=== PATIENT | male | born 1960 | race Caucasian/White ===

== ENCOUNTER → 2022-03-06 11:44 | Outpatient (CLI) | payer MEDICAID, SELFPAY ==
[2022-03-06 11:50] LABS: Coronavirus 19, PCR Not Detected (NotDetected); Influenza A, PCR Not Detected (NotDetected); Influenza B, PCR Not Detected (NotDetected)
[2022-03-06 13:21] LABS: Basophils % 0.5 % (0.1-2.0); Eosinophils # 0.1 K/mm3 (0.0-0.4); Eosinophils % 2.3 % (0.1-12.0); Hematocrit 39.9 % (42.0-52.0); Hemoglobin 12.2 g/dL (14.1-18.0); Lymphocytes # 1.4 K/mm3 (0.7-4.5); Lymphocytes % 28.3 % (10-50); Mean Corpuscular HGB Conc 30.7 g/dL (31.8-35.4); Mean Corpuscular Hemoglobin 29.8 pg (27.0-31.2); Mean Corpuscular Volume 97.2 fl (80-94); Monocytes # 0.4 K/mm3 (0.1-1.0); Monocytes % 7.5 % (1.7-9.3); Neutrophils % 61.3 % (37.0-80.0); Platelet Count 294 K/mm3 (142-424)
[2022-03-06 14:08] LABS: Chloride 103 mmol/L (98-107)
[2022-03-06 14:09] LABS: Potassium 4.4 mmoL/L (3.5-5.1); Sodium 139 mmol/L (136-145)
[2022-03-06 14:11] LABS: Blood Urea Nitrogen 12 mg/dl (9-20); Estimated Glomerular Filt Rate 62 ml/min (>60); GFR (African American) 75 ML/MIN (>60)
[2022-03-06 14:12] LABS: Anion Gap 11.4 mEq/L (5-15); Calcium 9.4 mg/dl (8.4-10.2); Carbon Dioxide 29 mmol/L (22.0-30.0); Glucose 151 mg/dl (74-100)
== END ==
PROVIDERS: PCP Pediatrics; Visit Provider Internal Medicine
DX: R06.02 Shortness of breath (principal); I25.10 Atherosclerotic heart disease of native coronary artery without angina pectoris; E11.9 Type 2 diabetes mellitus without complications; E66.01 Morbid (severe) obesity due to excess calories; E78.2 Mixed hyperlipidemia; I11.9 Hypertensive heart disease without heart failure; I20.0 Unstable angina; I63.9 Cerebral infarction, unspecified
CPT/HCPCS: 36415; 80048; 85025; C9803; U0003; U0005

== ENCOUNTER 2022-03-07 12:53 | Inpatient (IN) | payer MEDICAID, SELFPAY ==
[2022-03-07] VITALS (20 sets, daily range): BP systolic 98–165; BP diastolic 56–93; PULSE 50–71; RESP 12–22; TEMP 36.1–37.1; O2SAT 95–99; BMI 52.4
--- NOTE | 2022-03-07 07:13 | IR_ITS ---
APPROVED REPORT Patient Location: Outpatient PROCEDURES Left heart catheterization Left ventriculogram Selective coronary angiogram INDICATION Accelerated angina pectoris, Known diffuse coronary disease Informed consent was obtained prior to the procedure. COMPLICATIONS None Estimated Blood Loss: Less than 10 mls TECHNIQUE One percent lidocaine used to anesthetize the right anterior aspect of the wrist. The right radial artery was accessed via the Seldinger technique. A 6 [place] sheath was placed in the right radial artery. 2.5 mg of verapamil, 800 mcg of nitroglycerin, 1mg Lidocaine and 5000 U Heparin were given through the arterial sheath. The papa catheter was also used to perform left heart catheterization, left ventriculogram and selective coronary angiogram. At the end of the procedure the sheath was removed good hemostasis was achieved using Traclet band, patient was transferred to the postop holding area in stable condition. ANGIOGRAPHIC RESULTS The left main artery Has a mid vessel eccentric 80 to 90% stenosis with a distal 90% stenosis The left anterior descending artery Has an ostial 70 to 80% calcified stenosis with diffuse proximal and mid vessel 30% stenosis. There is a mid vessel concentric 70 to 80% stenosis. Distally the LAD is small caliber as it approaches the apex and has a long tubular 90% stenosis The circumflex artery Is nondominant yet still large with a stent in the proximal mid and distal segment. The ostium of the circumflex artery has a 90% stenosis with mid vessel and proximal 50% stenosis. Distally there are additional 30% stenosis The right coronary artery Is a dominant vessel and has stents in the proximal segment which are widely patent with minimal in-stent restenosis. Distally there are also stents which are widely patent. The posterior descending artery has stents in the proximal segment which are widely patent. The midportion has a focal 90% concentric stenosis The LAYTON ventriculogram reveals Preserved at 55% The left ventricular end-diastolic pressure 20 mmHg IMPRESSION Severe coronary disease as described above Preserved ejection fraction Elevated LVEDP PLAN 1. Discontinue Plavix and start heparin drip 2. Patient will be admitted for unstable angina with plans to transfer to [facility] for coronary bypass surgery this admission 3. LDL less than 55 to be achieved with high intensity statin 4. Risk factor modification Electronically signed by : Boogie Flor MD 03/07/2022 15:17:27
--- NOTE | 2022-03-07 12:00 | SUR.PHASEII ---
[facility] called to notify that pt is on list for bed but it wont be today, notified dr russell stated he will contact service physician and get patient admitted.
--- NOTE | 2022-03-07 12:28 | HMH.PHAINT1 ---
Pharmacy Intervention Comments: MEDICATION RECONCILIATION COMPLETED ON PATIENT USING EXTERNAL FILL HISTORY FROM PHARMACY. -LEA HUTCHINS, ANAD
[2022-03-07 12:50] LABS: INR 1.01 (0.9-1.1); Prothrombin Time 11.4 seconds (10.1-12.5)
[2022-03-07 12:53] LABS: PTT Heparin (inpatient only) 73.1 Seconds (23.6-34.0)
--- NOTE | 2022-03-07 12:55 | PC.NURSE ---
arrived to unit, room 262
--- NOTE | 2022-03-07 13:03 | PC.NURSE ---
received call from lab reporting PTT 73.1. Name and verified. Pharmacy ([facility]) notified.
--- NOTE | 2022-03-07 13:06 | EXP.PHA.VTE ---
[facility] Pharmacy VTE Monitoring Patient Demographics Admission date: 03/07/22 Report Date: 03/07/22 Time: 13:06 Patient Allergies isosorbide Allergy (Mild, Verified 03/06/22 10:49) Penicillins [PENICILLINS] Allergy (Unknown, Verified 03/06/22 10:49) Height: 1.57 m Weight: 130.181 kg VTE Risk Labs: VTE Related Lab Results PT 11.4 seconds (10.1-12.5) 03/07/22 12:15 INR 1.01 (0.9-1.1) 03/07/22 12:15 APTT 73.1 Seconds (23.6-34.0) H* 03/07/22 12:15 Was VTE Risk Assessment Performed: No Clinical Trial Participant: No Prophylaxis VTE Prophylaxis Ordered?: Yes Types of VTE Prophylaxis: TEDS Knee High and Pharmacological Location of Applied Device: Bilateral Lower Extremeties Pharmacologic Type: Heparin
[2022-03-07 16:16] LABS: PTT Heparin (inpatient only) 59.3 Seconds (23.6-34.0)
--- NOTE | 2022-03-07 16:48 | PC.NURSE ---
Notified nightwatch that PTT is 59.3
--- NOTE | 2022-03-07 16:58 | PC.NURSE ---
Per nightwatch (N. Irme): continue Heparin gtt @ 1200 units/hr. Next PTT entered per him @ 2200pm tonight
--- NOTE | 2022-03-07 17:02 | PC.NURSE ---
Blood sugar checked this afternoon and result is 187. Pt informed me that his A1C is down 2 points to 7. He explains that he decreased it by adding insulin to his regimen. I informed him that insulin is not a medication on his home med list. He explains that he buys OTC insulin pens for animals and administers 25units subq every morning. He reports that his oral diabetic medication is no longer effective and that insulin does the trick . I explained that his PCP needs to know this, as well as the provider @ [facility]. He states that he will not accept insulin that is prescribed to him and that notifying any medical doctor will not change his mind. Will make the team aware.
--- NOTE | 2022-03-07 18:08 | PC.NURSE ---
Addendum entered by Kate Julio RN 03/07/22 18:39: pt voided 750mL in urinal Original Note: shift summary: New admit from cathlab today. Pt underwent LHC via right wrist. No stents placed. Pt awaiting bed at for CABG. Dr. Fuentes is the CV surgeon @ . [facility]. Has been pleasant. Denies chest pain, n/v, and dyspnea. On RA with O2 sats high 90s. NSR on tele. Has been normotensive. Nitroglycerin gtt @ 5mcg/min per Dr. Flor. Heparin gtt is @ 1200 units/hr with next PTT due tonight at 2200. No s/s of bleeding noted. Dressing to right wrist CDI. Tolerating a cardiac diet. Has not voided since being admitted @ 1pm. Pt reports that he has not needed to. Pt is permitted to have visitors. He has not had visitors this shift.
--- NOTE | 2022-03-07 18:33 | EXP.HP ---
History of Present Illness *Admission Date: 03/07/22 *Reason for visit:: coronary artery disease *History of present illness: 61 year old male admitted to our service following cardiac cath. We are waiting on transfer to [facility] for bypass. ANGIOGRAPHIC RESULTS The left main artery Has a mid vessel eccentric 80 to 90% stenosis with a distal 90% stenosis The left anterior descending artery Has an ostial 70 to 80% calcified stenosis with diffuse proximal and mid vessel 30% stenosis.? There is a mid vessel concentric 70 to 80% stenosis.? Distally the LAD is small caliber as it approaches the apex and has a long tubular 90% stenosis The circumflex artery Is nondominant yet still large with a stent in the proximal mid and distal segment.? The ostium of the circumflex artery has a 90% stenosis with mid vessel and proximal 50% stenosis.? Distally there are additional 30% stenosis The right coronary artery Is a dominant vessel and has stents in the proximal segment which are widely patent with minimal in-stent restenosis.? Distally there are also stents which are widely patent.? The posterior descending artery has stents in the proximal segment which are widely patent.? The midportion has a focal 90% concentric stenosis The [place] ventriculogram reveals Preserved at 55% The left ventricular end-diastolic pressure 20 mmHg IMPRESSION Severe coronary disease as described above Preserved ejection fraction Elevated LVEDP PFSH PFS Medical History (Updated 03/07/22 @ 18:39 by Tamir Herron MD) Angina, class IV CAD (coronary artery disease) HHD (hypertensive heart disease) Hyperlipidemia Obesity SOB (shortness of breath) Surgical History Stented coronary artery Family History (Updated 03/07/22 @ 13:39 by Kate Julio RN) Other No significant family history Social History Smoking Status: Never smoker second hand exposure: No alcohol intake: never substance use type: denies use current occupational status: employed Travel in the last 8 weeks: None household members: spouse housing: house current occupational exposures/hazards: No caffeine: Yes Review of Systems Constitutional Constitutional: Reports system reviewed and no additional complaints, except as documented Eyes Eyes: Reports system reviewed and no additional complaints, except as documented ENT Ears, Nose, Mouth, and Throat: Reports system reviewed and no additional complaints, except as documented *Cardiovascular Cardiovascular: Reports chest pain *Respiratory Respiratory: Reports system reviewed and no additional complaints, except as documented *Gastrointestinal Gastrointestinal: Reports system reviewed and no additional complaints, except as documented *Genitourinary Genitourinary: Reports system reviewed and no additional complaints, except as documented *Musculoskeletal Musculoskeletal: Reports system reviewed and no additional complaints, except as documented Integumentary/Breasts Skin/Breast: Reports system reviewed and no additional complaints, except as documented *Neurologic Neurologic: Reports system reviewed and no additional complaints, except as documented Psychiatric Psychiatric: Reports system reviewed and no additional complaints, except as documented Endocrine Endocrine: Reports system reviewed and no additional complaints, except as documented Hematologic/Lymphatic Hematologic/Lymphatic: Reports system reviewed and no additional complaints, except as documented Allergic/Immunologic Allergic/Immunologic: Reports system reviewed and no additional complaints, except as documented Meds Home Medications and Allergies Home Medications Medication Instructions Recorded Confirmed Type glyburide 5 mg tablet 5 mg PO DAILY Diabetes 12/17/17 03/07/22 History metformin 1,000 mg tablet 1,000 mg PO BID Diabetes 12/17/17 03/07/22 History piogli
--- NOTE | 2022-03-07 19:12 | EXP.DC.SUM ---
General Admission date:: 03/07/22 Discharge date: 03/07/22 HPI HPI HPI: 61 year old male admitted to our service following cardiac cath. We are waiting on transfer to [facility] for bypass. ANGIOGRAPHIC RESULTS The left main artery Has a mid vessel eccentric 80 to 90% stenosis with a distal 90% stenosis The left anterior descending artery Has an ostial 70 to 80% calcified stenosis with diffuse proximal and mid vessel 30% stenosis.? There is a mid vessel concentric 70 to 80% stenosis.? Distally the LAD is small caliber as it approaches the apex and has a long tubular 90% stenosis The circumflex artery Is nondominant yet still large with a stent in the proximal mid and distal segment.? The ostium of the circumflex artery has a 90% stenosis with mid vessel and proximal 50% stenosis.? Distally there are additional 30% stenosis The right coronary artery Is a dominant vessel and has stents in the proximal segment which are widely patent with minimal in-stent restenosis.? Distally there are also stents which are widely patent.? The posterior descending artery has stents in the proximal segment which are widely patent.? The midportion has a focal 90% concentric stenosis The [place] ventriculogram reveals Preserved at 55% The left ventricular end-diastolic pressure 20 mmHg IMPRESSION Severe coronary disease as described above Preserved ejection fraction Elevated LVEDP Hospital Course Hospital Course Hospital Course: patient admitted to our service following [facility] he is being transferred to [facility] for bypass Exam Data for Last 24 hours Vital signs and Labs for Last 24 Hours: Temp Pulse Resp BP Pulse Ox 96.9 F L 71 16 118/71 96 03/07/22 16:25 03/07/22 18:25 03/07/22 18:25 03/07/22 18:25 03/07/22 18:25 Laboratory Results - last 24 hr 03/07/22 12:15: PT 11.4, INR 1.01, APTT 73.1 H* 03/07/22 15:50: APTT 59.3 H* I & O for Last 24 hours: Intake & Output 03/04/22 03/05/22 03/06/22 03/07/22 23:59 23:59 23:59 23:59 Intake Total 507 / 507 Output Total 750 / 750 Balance -243 / -243 Weight 287 lb Microbiology Reports for the Last 24 Hours: Microbiology 03/07/22 13:15 Nasopharyngeal Coronavirus COVID-19 PCR - Final Constitutional Constitutional: no acute distress *Routine HEENT Exam Head: Present normocephalic Eye: Present EOMI ENT: Present mucous membranes moist *Routine Neck Exam Neck: Present supple *Routine Respiratory Exam Respiratory: Present CTA bilaterally *Routine Cardiovascular Exam Cardiovascular: Present RRR *Routine Abdominal Exam Abdominal: Present soft and obese *Routine Extremities Exam Extremities: Absent cyanosis *Routine Skin Exam Skin: Absent cyanosis *Routine Neurological Exam Neurological: Present alert and oriented X3 Results Data Completed and Pending Labs on day of discharge: Labs from last 24 hours 03/07/22 03/07/22 15:50 12:15 PT 11.4 INR 1.01 APTT 59.3 H* 73.1 H* DS: Diagnosis Discharge Diagnosis (1) Angina pectoris: Status: Chronic (2) Coronary arteriosclerosis: Status: Chronic (3) Hyperlipemia: Status: Chronic (4) Essential (primary) hypertension: Status: Chronic (5) Diabetes: Status: Chronic (6) Morbid obesity: Status: Chronic (7) Crescendo angina: Status: Acute Meds Home Medications and Allergies Home Medications Medication Instructions Recorded Confirmed Type glyburide 5 mg tablet 5 mg PO DAILY Diabetes 12/17/17 03/07/22 History metformin 1,000 mg tablet 1,000 mg PO BID Diabetes 12/17/17 03/07/22 History pioglitazone 45 mg tablet (Actos) 45 mg PO DAILY Diabetes 12/17/17 03/07/22 History aspirin 81 mg tablet,delayed 81 mg PO DAILY Heart disease #90 08/07/18 03/07/22 Rx release (Adult Low Dose Aspirin) tabs enalapril maleate 20 mg tablet 10 mg PO BID Hypertension 3 months 02/16/20 03/07/22 Rx #90 tabs ferrous sulfate 325 mg (65 mg 325 mg PO DAILY Supplement
--- NOTE | 2022-03-07 20:44 | PC.NURSE ---
pt left ICU at this time accompanied by EMS staff via stretcher, going to [facility] A 8th floor Rm 120, progressive unit cardiology
--- NOTE | 2022-03-08 07:55 | HMH.PHAHEP ---
[facility] Pharmacy Heparin Dosing Demographic Data Admission date:: 03/07/22 Date: 03/08/22 Time: 07:55 Allergies Allergy/AdvReac Type Severity Reaction Status Date / Time isosorbide Allergy Mild Verified 03/06/22 10:49 Penicillins [PENICILLINS] Allergy Unknown Verified 03/06/22 10:49 Height: 1.57 m Weight: 130.2 kg Indication Medication therapy:: Heparin Current Active Problems (Updated 03/07/22 @ 18:39 by Tamir Herron MD) Angina pectoris (Chronic) Coronary arteriosclerosis (Chronic) Hyperlipemia (Chronic) Essential (primary) hypertension (Chronic) Diabetes (Chronic) Morbid obesity (Chronic) Crescendo angina (Acute) CVA?: No Bleeding problem?: No Kidney disease?: No HI?: No Desired PTT range:: Other Comments:: 50-75 Monitoring Dose Monitor 1: Date: 03/07/22 Time: 12:15 PTT Result:: 73.1 Infusion Rate:: 24 ML/HR (1200 UNITS/HR) 5000 UNIT BOLUS AT 1000, 3000 UNITS BOLUS AT 1004 Dose Monitor 2: Date: 03/07/22 Time: 15:50 PTT Result:: 59.3 Infusion Rate:: CONTINUED 24 ML/HR (1200 UNITS/HR) Comment:: TRANSFERRED Core Measures Is INR > or = 2 at discharge?: No Most Recent Labs:: Laboratory Results - last 24 hr 03/07/22 12:15: PT 11.4, INR 1.01, APTT 73.1 H* 03/07/22 15:50: APTT 59.3 H* Were Heparin and Warfarin started on the same day?: No If not, why?: TRANSFERRED
[2022-03-08 16:58] LABS: POC Glucose,Bedside 187 (70-110)
== END 2022-03-07 20:44 | disposition short-term general hospital (02) | DRG 287 ==
PROVIDERS: Internal Medicine; Admitting Provider Family Medicine; PCP Pediatrics; Visit Provider Family Medicine
PROC: 4A023N7 Measurement of Cardiac Sampling and Pressure, Left Heart, Percutaneous Approach (ICD-10-PCS; principal; 2022-03-07 14:00)
DX: I25.118 Atherosclerotic heart disease of native coronary artery with other forms of angina pectoris (principal); Z68.43 Body mass index [BMI] 50.0-59.9, adult; T82.855A Stenosis of coronary artery stent, initial encounter; E66.01 Morbid (severe) obesity due to excess calories; E78.5 Hyperlipidemia, unspecified; I10 Essential (primary) hypertension; Z79.4 Long term (current) use of insulin; Y83.1 Surgical operation with implant of artificial internal device as the cause of abnormal reaction of the patient, or of later complication, without mention of misadventure at the time of the procedure
CPT/HCPCS: 36415; 80048; 82962; 85025; 85610; 85730; 93458; 99152; C1725; C1760; C1769; C9803; J1644; Q9967; U0003; U0005